=== PATIENT | male | born 1985 | race Caucasian/White ===

== ENCOUNTER → 2023-11-02 14:08 | Outpatient (REF) | payer OTHER, SELFPAY | LOC: RAD 14:08 | PROVIDERS: ATTENDING PHYSICIAN Physician Assistant; FAMILY PHYSICIAN Family Medicine | DX: E83.52 Hypercalcemia (principal); E34.9 Endocrine disorder, unspecified | CPT/HCPCS: 77080; 77081 ==

== ENCOUNTER → 2023-11-15 07:57 | Outpatient (REF) | payer OTHER, SELFPAY | LOC: RAD 07:57 | PROVIDERS: ATTENDING PHYSICIAN Physician Assistant; FAMILY PHYSICIAN Family Medicine | DX: E83.52 Hypercalcemia (principal); E34.9 Endocrine disorder, unspecified | CPT/HCPCS: 78071; A9500 ==

== ENCOUNTER → 2023-11-17 13:39 | Outpatient (REF) | payer OTHER, SELFPAY | LOC: HWRAD 13:39 | PROVIDERS: ATTENDING PHYSICIAN Physician Assistant; FAMILY PHYSICIAN Family Medicine | DX: E83.52 Hypercalcemia (principal); E34.9 Endocrine disorder, unspecified | CPT/HCPCS: 76536 ==

== ENCOUNTER 2024-02-27 06:08 | Day surgery (SDC) | payer OTHER, SELFPAY ==
[2024-02-16 09:04] VITALS: BMI 25.6
[2024-02-16 10:45] LABS: Hematocrit 42.8 % (39.0-52.0); Hemoglobin 14.6 g/dL (13.0-18.0); Mean Corp Hgb Conc. 34.1 g/dL (33.0-37.0); Mean Platelet Volume 9.6 fL (7.4-10.4); Platelet Count 209 10^3/uL (130-400); Red Blood Cell Count 5.22 10^6/uL (4.70-6.10); Red Cell Dist. Width 12.6 % (11.5-14.5); White Blood Cell Count 5.9 10^3/uL (4.8-10.8)
[2024-02-16 10:50] LABS: INR 0.93; PT 12.2 Sec (11.4-14.6)
[2024-02-16 10:51] LABS: APTT 28.3 Sec (23.4-35.0)
[2024-02-16 12:53] LABS: ALT (SGPT) 20 U/L (0-50); AST (SGOT) 21 U/L (17-59); Albumin 4.7 g/dl (3.5-5.0); Alkaline Phosphatase 72 U/L (38-126); Blood Urea Nitrogen 18 mg/dl (9-20); Calcium 11.2 mg/dl (8.4-10.2); Carbon Dioxide 25 mmol/L (22-30); Chloride 104 mmol/L (98-107); Estimated Creatinine Clearance > 125 ml/min; Glucose 94 mg/dl (70-99); Potassium 4.6 mmol/L (3.5-5.1); Sodium 140 mmol/L (135-145); Total Bilirubin 0.5 mg/dl (0.2-1.3); Total Protein 7.5 g/dl (6.3-8.2); eGFR > 60.00
[2024-02-27] VITALS (7 sets, daily range): BP systolic 119–131; BP diastolic 73–80; BMI 25.6
[2024-02-27] MEDS: TYLENOL 1000 MG PO (06:46)
[2024-02-27] MEDS: NORMOSOL-R 1000 IV (06:46)
[2024-02-27] MEDS: HEPARIN 5000 UNITS SC (06:46)
[2024-02-27] MEDS: NEURONTIN 300 MG PO (06:53)
[2024-02-27 08:18] LABS: Turbo PTH 471.1 pg/ml (13.6-85.8)
[2024-02-27 09:07] LABS: Turbo PTH 14.6 pg/ml (13.6-85.8)
--- NOTE | 2024-02-27 09:22 | OR.RPT ---
Operative Report
Operative Report
Patient Name: Ricky Luciano
Date of : 1985
Date of Operation: February 27, 2024
Preoperative Diagnosis: �Parathyroid hyperparathyroidism - E210
Postoperative Diagnosis: Same
Surgeon: Nick Spear M.D.
Operation: Minimally Invasive Right Superior Parathyroidectomy - 92646
Anesthesia: GET
Estimated Blood Loss: 3 cc
Drains: None
Specimen: Right superior neck nodule, rule out parathyroid adenoma
Complications: �None
Procedure:
The patient was taken to the operating room and placed in the usual supine position. After adequate general endotracheal anesthesia was established, the patient's neck was extended, prepped, and draped in the typical sterile fashion. A 4 cm
transcervical incision was made two fingerbreadths above the sternal notch. The skin incision was made with the #15 blade, and this was taken through the skin into the subcutaneous tissue. The underlying platysma muscle was divided, and subplatysmal
flaps were created superiorly to the thyroid cartilage and inferiorly to the sternal notch. Strap muscles were identified and at the midline. Attention was turned to the patient's right side of the neck. The right thyroid lobe was
mobilized medially. During this process, the right recurrent laryngeal nerve was identified and preserved throughout the surgery. The right upper lower neck nodule was identified and noted to be enlarged, excised, and sent to the pathology
department, which showed a hypercellular parathyroid gland. The intraoperative PTH levels normalized. After obtaining adequate hemostasis, the strap muscles were reapproximated with #3-0 Vicryl in a running fashion. The platysma muscle was
reapproximated with #3-0 Vicryl in an interrupted fashion, and the skin was approximated with #4-0 Monocryl in a running subcuticular fashion. The Steri-Strips and sterile dressings were placed. The patient tolerated the procedure well. The final
instrument, needle, and sponge counts were correct. The patient was extubated and transferred to the PACU.
== END 2024-02-27 10:48 | disposition home or self-care (01) ==
LOC: SDS 06:08
PROVIDERS: ATTENDING PHYSICIAN Surgery; FAMILY PHYSICIAN Family Medicine
DX: D35.1 Benign neoplasm of parathyroid gland (principal); E21.0 Primary hyperparathyroidism
CPT/HCPCS: 60500; 88305; 88332; 36415; 80053; 83970; 85027; 85610; 85730; 88331; 93005